=== PATIENT | female | born 1975 | race Caucasian/White ===

== ENCOUNTER 2022-09-24 03:18 | Emergency (ER) | payer OTHER ==
[~2022-09-24] VITALS: Ht 175.3 cm; Wt 99.8 kg
[2022-09-24 03:28] VITALS: BP_SYST 131
--- NOTE | 2022-09-24 03:28 | NUR ---
Triaged and placed patient to ER bed 5 for evaluation. No acute respiratory distress at this time. Denied any SI/HI. VSS. Informed patient to notify ED staff for any changes in condition or worsening of symptoms while waiting to be seen by a provider. Patient verbalized understanding.
--- NOTE | 2022-09-24 03:38 | NUR ---
Dr. Wasserman at bedside examining the patient.
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
--- NOTE | 2022-09-24 04:50 | NUR ---
Pt remains in stable condition, resting in comfort on gurney with rails up
--- NOTE | 2022-09-24 05:52 | NUR ---
No s/s of acute distress remaining asleep
--- NOTE | 2022-09-24 06:43 | NUR ---
Patient given written and verbal discharge instructions and verbalizes understanding. ER MD discussed with patient the results and treatment provided. Patient in stable condition. ID arm band removed. Patient educated on pain management and to follow up with PMD. Pain Scale 0/10 Opportunity for questions provided and answered.
[2022-09-24 06:44] VITALS: BP_SYST 128
== END 2022-09-24 06:43 | disposition home or self-care (01) ==
LOC: SED 03:18
DX: F15.129 Other stimulant abuse with intoxication, unspecified (principal); F32.A Depression, unspecified; F17.200 Nicotine dependence, unspecified, uncomplicated; R03.0 Elevated blood-pressure reading, without diagnosis of hypertension; Z79.899 Other long term (current) drug therapy
CPT/HCPCS: 99281